=== PATIENT | male | born 1985 | race Caucasian/White ===

== ENCOUNTER 2018-05-25 08:42 | Emergency (ER) | payer SELFPAY ==
[2018-05-25 08:50] VITALS: BP 156/95; PULSE 75; RESP 20; TEMP 98.6; O2SAT 97
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
== END 2018-05-25 09:18 | disposition home or self-care (01) ==
LOC: C.ER 08:42 → EDBD 08:42 → C.ER 09:18
DX: K08.89 Other specified disorders of teeth and supporting structures (principal); Z72.0 Tobacco use